=== PATIENT | female | born 1995 | race Hispanic/Latino ===

== ENCOUNTER 2018-11-05 20:23 | Emergency (ER) | payer OTHER ==
[~2018-11-05] VITALS: Ht 165.1 cm; Wt 85.0 kg
[2018-11-05] MEDS ORDERED: KETOROLAC TROMETHAMINE 10 MG TAB PO ONE (21:45)
[2018-11-05] MEDS ORDERED: ONDANSETRON 4 MG ORAL DISINTEGRATING TAB (Q0162 PER 1MG) PO ONE (21:45)
[2018-11-05] MEDS ORDERED: ONDA4TAB6 PO (22:01)
[2018-11-05] MEDS ORDERED: KETO10TAB PO (22:01)
[2018-11-05 22:27] VITALS: BP 137/70
== END 2018-11-05 22:30 | disposition home or self-care (01) ==
LOC: M ED 20:23
DX: R51 Headache (principal); V43.63XA Car passenger injured in collision with pick-up truck in traffic accident, initial encounter; Y92.410 Unspecified street and highway as the place of occurrence of the external cause; Y93.9 Activity, unspecified; Y99.9 Unspecified external cause status